=== PATIENT | male | born 1995 | race Two or more races ===

== ENCOUNTER 2021-07-07 14:27 | Outpatient (CLI) | payer OTHER ==
--- NOTE | 2021-07-07 16:57 | MRI Report ---
PROCEDURE: Shoulder LT W/O INDICATIONS: LEFT SHOULDER PAIN TECHNIQUE: Noncontrast oblique coronal T2 fast spin echo with fat saturation, oblique sagittal T1 spin echo and T2 fast spin echo with fat saturation, axial T1 spin echo and T2 fast spin echo with fat saturation t hrough the shoulder. COMPARISON: None. FINDINGS: Image quality: Excellent. Rotator cuff: There is a low-grade partial-thickness bursal surface and intrasubstance tear of the a nterior supraspinatus tendon at the humeral insertion site. The supraspinatus, infraspinatus, and sub scapularis tendons otherwise appear intact throughout. No rotator cuff muscle atrophy on sagittal im ages. Bones and bursae: No bone marrow contusions or fractures. Mild acromioclavicular joint degeneration. The acromion demonstrates conventional anatomy, without an os acromiale. No pathologic subacromial /subdeltoid bursal fluid is present. Capsule and soft tissues: In the absence of intra-articular contrast, the labrum and glenohumeral li gaments appear intact. The long head of the biceps tendon demonstrates normal location and morpholog y. The rotator interval appears normal, without fibrosis. The coracohumeral ligament is normal in t hickness. IMPRESSION: 1. Small low-grade tear of the anterior supraspinatus tendon at the humeral insertion site. No full-t hickness rotator cuff tear. 2. Acromioclavicular joint osteoarthritis. Reviewed by: Juanita Hernandez MD on 07/07/2021 4:55 PM PDT Approved by: Juanita Hernandez MD on 07/07/2021 4:55 PM PDT Station ID: [id number]
== END 2021-07-07 14:28 | disposition home or self-care (01) ==
LOC: DI 14:27
PROVIDERS: ATTEND Family Medicine
DX: M75.112 Incomplete rotator cuff tear or rupture of left shoulder, not specified as traumatic (principal); M19.012 Primary osteoarthritis, left shoulder